=== PATIENT | male | born 1955 | race Hispanic/Latino ===

== ENCOUNTER → 2025-05-02 | Day surgery (SDC) | payer MEDICARE ==
[2025-05-01 14:02] LABS: BASOPHILS % 0.2 % (0.0-1.0); EOSINOPHILS % 1.8 % (0.0-6.0); LYMPHOCYTES % 26.2 % (18.0-39.1); MONOCYTES % 7.9 % (4.4-11.3); NEUTROPHILS % 63.7 % (38.7-80.0); RED CELL DISTRIBUTION WIDTH 13.1 % (11.7-14.4)
[2025-05-01 14:54] LABS: EST GLOMERULAR FILTRATION RATE 100.0 ML/MIN (>=60)
[~2025-05-02] MED LIST: ACETAMINOPHEN 1000 MG/100 ML 100 ML IV ONE; ACETAMINOPHEN 1000 MG/100 ML IV PRN; ASPIRIN 325 MG TAB PO SCH; ASPIRIN EC81 MG PO; ATORVASTATIN CA20 MG PO; BEET ROOT500 MG PO; BUPIVACAINE 0.5%/EPI 30 ML SDV INJ ONE; CELECOXIB 100 MG CAP PO SCH; CLOPIDOGREL75 MG PO; DEXAMETHASONE SOD PHOS INJ 4 MG/ML SDV ONE; DIPHENHYDRAMINE HCL INJ 50 MG/ML VIAL IV PRN; DOCUSATE SODIUM 100 MG CAP PO PRN; FENTANYL CITRATE/PF 100MCG/2 ML INJ ONE; FIBER GUMMIES PO; FISH OIL 1,2001 EACH PO; HYDROCODONE/APAP 5MG-325MG TAB PO PRN; HYDROCODONE/APAP 7.5MG-325MG 1 EA TAB PO PRN; K2 PLUS D3 TAB1 EACH PO; LIDOCAINE HCL 2% LOCAL INJ 5 ML SDV VIAL INJ ONE; MEN'S 50 PLUS1 EACH PO; MIDAZOLAM HCL 2 MG/2 ML VIAL ONE; ONDANSETRON HCL INJ 2MG/ML 2ML 2 MG/ML VIAL ONE; PHENYLEPHRINE HCL 1% 10 MG/ML VIAL ONE; PROPOFOL IV EMULSION 10 MG/ML 20 ML VIAL ONE; ROPIVACAINE/EPI/CLONIDINE/KET 50 ML SYRINGE INJ ONE; SERTRALINE HCL50 MG PO; SEVOFLURANE INHAL SOLN 250 ML PEN BTL ONE; SODIUM CHLORIDE 0.9% 100 ML ONE; SODIUM CHLORIDE 0.9% 1000ML 1,000 ML IV SCH; SUCCINYLCHOLINE CHLORIDE 20 MG/ML 10ML VIAL ONE; TRAZODONE HCL50 MG PO; VIAGRA100 MG PO; VITAMIN C1000 MG PO; [UNRECOGNIZED DRUG - OTHER] PO
[2025-05-02] MEDS: LACTATED RINGER'S 1,000 ML ONE (06:02)
[2025-05-02] MEDS: GABAPENTIN 300 MG CAP ONE (06:02)
[2025-05-02] MEDS: DEXAMETHASONE SOD PHOS 10 MG/1 ML VIAL ONE (06:02)
[2025-05-02] MEDS: CEFAZOLIN SODIUM 2 GM ONE (06:02)
[2025-05-02] MEDS: CELECOXIB 200 MG CAP ONE (06:02)
[2025-05-02 08:54] VITALS: TEMP 97.2
[2025-05-02] MEDS: ONDANSETRON HCL INJ 2MG/ML 2ML 2 MG/ML VIAL IV PRN (09:30)
[2025-05-02] MEDS: METOCLOPRAMIDE HCL 10 MG/2ML VIAL ONE (09:55)
[2025-05-02 12:30] VITALS: BP 108/70; PULSE 60; RESP 15; O2SAT 97
== END | disposition home health service (06) ==
LOC: OR 05:11
PROVIDERS: ATTEND Specialist
DX: M17.11 Unilateral primary osteoarthritis, right knee (principal); M25.761 Osteophyte, right knee; I69.351 Hemiplegia and hemiparesis following cerebral infarction affecting right dominant side; G47.33 Obstructive sleep apnea (adult) (pediatric); E78.5 Hyperlipidemia, unspecified; F32.A Depression, unspecified; Z01.812 Encounter for preprocedural laboratory examination; Z01.818 Encounter for other preprocedural examination; Z79.02 Long term (current) use of antithrombotics/antiplatelets; Z79.82 Long term (current) use of aspirin; Z79.899 Other long term (current) drug therapy; Z87.891 Personal history of nicotine dependence; Z86.19 Personal history of other infectious and parasitic diseases
CPT/HCPCS: 27447; 36415 ×2; 71046; 73560; 80048; 82948; 85025; 86850; 86900; 97110; 97116 ×2; 97162; 97530; C1713; C1776 ×4; J0131; J0330; J1100 ×2; J2003; J2250; J2371; J2405; J2704; J2765; J3010; J7050; J7121